=== PATIENT | female | born 1980 | race Two or more races ===

== ENCOUNTER 2021-02-03 18:57 | Emergency (ER) | payer MEDICAID, OTHER ==
[~2021-02-03] VITALS: Ht 157.5 cm; Wt 62.1 kg
[2021-02-03 20:33] LABS: Urine Bacteria NONE SEEN /hpf (None Seen); Urine Blood 1+ /uL (Negative); Urine Specific Gravity 1.007 (1.001-1.035); Urine WBC 1 /hpf (0 - 5)
[2021-02-03] MEDS ORDERED: HYDROcodone-ACET 10/325MG TAB PO ONE (23:45)
[2021-02-03] MEDS ORDERED: IBUPROFEN 800 MG TAB PO ONE (23:45)
[2021-02-04 00:10] VITALS: BP 103/69
== END 2021-02-04 00:23 | disposition home or self-care (01) ==
LOC: ER 19:00
DX: S33.6XXA Sprain of sacroiliac joint, initial encounter (principal); X58.XXXA Exposure to other specified factors, initial encounter; Y93.89 Activity, other specified; Y92.89 Other specified places as the place of occurrence of the external cause; Y99.8 Other external cause status
CPT/HCPCS: 72131; 81001; 81025